=== PATIENT | female | born 1975 | race Caucasian/White ===

== ENCOUNTER → 2017-07-09 | Outpatient (CLI) | payer BC ==
[~2017-07-09] MED LIST: NORCO PO; PRENATAL VITAMI1 TA5 PO; ZOFRAN4 MG PO
== END ==
LOC: MC.RAD 08:20
DX: Z12.31 Encounter for screening mammogram for malignant neoplasm of breast (principal); N64.89 Other specified disorders of breast

== ENCOUNTER → 2017-07-17 | Outpatient (CLI) | payer BC | LOC: MC.RAD 10:57 | DX: R92.8 Other abnormal and inconclusive findings on diagnostic imaging of breast (principal) ==